=== PATIENT | female | born 1995 | race Caucasian/White ===

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

== ENCOUNTER 2018-03-24 11:45 | Emergency (ER) | payer SELFPAY ==
[~2018-03-24] VITALS: Ht 157.5 cm; Wt 47.4 kg
[2018-03-24 11:57] VITALS: BP 121/90
[2018-03-24] MEDS ORDERED: LYRICA50 MG PO (12:53)
[2018-03-24] MEDS ORDERED: PRILOSEC20 MG PO (12:54)
[2018-03-24] MEDS ORDERED: MOTRIN600 MG PO (13:29)
== END 2018-03-24 13:56 | disposition home or self-care (01) ==
LOC: EME 11:45 → RME 11:45
DX: S93.402A Sprain of unspecified ligament of left ankle, initial encounter (principal); W19.XXXA Unspecified fall, initial encounter; K21.9 Gastro-esophageal reflux disease without esophagitis; F41.9 Anxiety disorder, unspecified; F32.9 Major depressive disorder, single episode, unspecified; F31.9 Bipolar disorder, unspecified; F17.200 Nicotine dependence, unspecified, uncomplicated; Z88.8 Allergy status to other drugs, medicaments and biological substances
CPT/HCPCS: 73610; 73630; 99281; 99284